=== PATIENT | male | born 1950 | race Caucasian/White ===

== ENCOUNTER → 2020-01-11 08:11 | Outpatient (BNVA) | payer MEDICARE, SELFPAY | PROVIDERS: Family Provider Registered Nurse; PCP Registered Nurse; Visit Provider Nurse Practitioner Family | DX: I10 Essential (primary) hypertension (principal); Z00.00 Encounter for general adult medical examination without abnormal findings; Z12.5 Encounter for screening for malignant neoplasm of prostate | CPT/HCPCS: 80053; 80061; G0103 ==

== ENCOUNTER → 2020-06-19 08:06 | Outpatient (BNVA) | payer MEDICARE, SELFPAY | PROVIDERS: Family Provider Registered Nurse; PCP Registered Nurse; Visit Provider Nurse Practitioner Family | DX: I10 Essential (primary) hypertension (principal) | CPT/HCPCS: 80053 ==

== ENCOUNTER → 2020-07-03 08:30 | Outpatient (BNVA) | payer MEDICARE, SELFPAY | PROVIDERS: Family Provider Registered Nurse; PCP Registered Nurse; Referring Provider Nurse Practitioner Family; Visit Provider Orthopaedic Surgery | DX: M17.11 Unilateral primary osteoarthritis, right knee (principal); M25.561 Pain in right knee | CPT/HCPCS: 73560; 73565 ==

== ENCOUNTER → 2021-03-27 09:50 | Outpatient (BNVA) | payer MEDICARE, SELFPAY | PROVIDERS: Family Provider Registered Nurse; PCP Family Medicine Adult Medicine; Visit Provider Family Medicine Adult Medicine | DX: I10 Essential (primary) hypertension (principal); N40.0 Benign prostatic hyperplasia without lower urinary tract symptoms; Z13.6 Encounter for screening for cardiovascular disorders | CPT/HCPCS: 80053; 80061; 84153; 84443; 85025 ==

== ENCOUNTER → 2022-03-22 14:14 | Outpatient (BNVA) | payer MEDICARE, SELFPAY | PROVIDERS: Family Provider Registered Nurse; PCP Family Medicine Adult Medicine; Visit Provider Family Medicine Adult Medicine | DX: E78.5 Hyperlipidemia, unspecified (principal); I10 Essential (primary) hypertension; N40.0 Benign prostatic hyperplasia without lower urinary tract symptoms; Z12.5 Encounter for screening for malignant neoplasm of prostate | CPT/HCPCS: 80053; 80061; G0103 ==

== ENCOUNTER → 2023-07-28 09:10 | Outpatient (BNVA) | payer MEDICARE, SELFPAY | PROVIDERS: Family Provider Registered Nurse; PCP Family Medicine Adult Medicine; Visit Provider Family Medicine Adult Medicine | DX: I10 Essential (primary) hypertension (principal); E78.5 Hyperlipidemia, unspecified; N40.0 Benign prostatic hyperplasia without lower urinary tract symptoms; R35.1 Nocturia; N40.1 Benign prostatic hyperplasia with lower urinary tract symptoms | CPT/HCPCS: 80053; 80061; 84443; 85025; G0103 ==

== ENCOUNTER → 2023-11-20 14:10 | Outpatient (BNVA) | payer MEDICARE, SELFPAY | PROVIDERS: Family Provider Registered Nurse; PCP Family Medicine Adult Medicine; Referring Provider Nurse Practitioner; Visit Provider Surgery | DX: R13.10 Dysphagia, unspecified (principal); K21.9 Gastro-esophageal reflux disease without esophagitis; Z86.010 Personal history of colon polyps | CPT/HCPCS: 99204 ==

== ENCOUNTER 2024-01-28 11:41 | Day surgery (SDC) | payer MEDICARE, SELFPAY ==
[2024-01-28 12:17] VITALS: BP 191/108; PULSE 77; RESP 18; TEMP 36.3; O2SAT 98; BMI 35.6
[2024-01-28] MEDS: sodium chloride 0.9% 1,000 ML 30 ML IV (12:23)
--- NOTE | 2024-01-28 12:52 | ANES.PREANE2 ---
Pre-Anesthetic Assessment Height/Weight: Height 1.85 m Weight 122.47 kg Temp Pulse Resp BP Pulse Ox O2 Del Method 97.4 F L 77 18 191/108 98 Room Air 01/28/24 12:17 01/28/24 12:17 01/28/24 12:17 01/28/24 12:17 01/28/24 12:17 01/28/24 12:17 Preop Diagnosis: dysphagia, screening Operation Date: 01/28/24 12:45 Proposed Procedures p EGD Dilation W/ Balloon 97794, 31458, G0105, Z86.010, R13.10(Not Applicable) - Jose Mosley DO s Colonoscopy(Not Applicable) - Jose Mosley DO Familial anesthetic complications: none Was Beta Mingo taken within 24 hours: N/A Was Clonidine taken within 24 hours: N/A Last intake: Intake Last Liquid Date 01/27/24 Last Liquid Time 23:00 Last Solid Date 01/26/24 Last Solid Time 17:00 Social No alcohol and No tobacco Exam alert, oriented x 3, clear to auscultation bilaterally and regular rate & rhythm Airway Submandibular: within normal limits Cervical ROM: within normal limits Mallampati: Class III Dentition: partials Pulmonary None reported CV/HEM Hypertension None reported Hepatic None reported GI Gastroesophageal Reflux Disease Metabolic Hyperlipidemia [facility]/skel None reported right wrist injury. Neuropsych None reported Anesthetic Plan ASA status: 2 Anesthesia: MAC Medications/Allergies Home Medications Medication Instructions Recorded Confirmed Last Taken Type sildenafil 50 mg tablet 50 mg PO DAILY PRN sexual activity 04/04/22 01/26/24 Unknown Rx #5 tabs tamsulosin 0.4 mg capsule 0.4 mg PO DAILY #90 caps 06/17/23 01/26/24 01/25/24 Rx B-complex with vitamin C 1 tab PO DAILY B vitamins #100 tabs 08/20/23 01/26/24 01/25/24 Rx clotrimazole-betamethasone 1 1 applic topical BID 2 weeks #45 11/04/23 01/26/24 01/25/24 Rx %-0.05 % topical cream grams pantoprazole 40 mg tablet,delayed 40 mg PO BID 6 weeks #84 tabs 11/20/23 01/26/24 01/25/24 Rx release (Protonix) guanfacine 2 mg tablet 2 mg PO BID blood pressure control 12/15/23 01/26/24 01/27/24 08:00 Rx 90 days #180 tabs hydralazine 25 mg tablet 25 mg PO TID PRN HTN #270 tabs 12/26/23 01/26/24 01/26/24 Rx lisinopril 20 mg tablet 20 mg PO DAILY 01/27/24 01/27/24 01/25/24 History pravastatin 20 mg tablet 20 mg PO DAILY 01/27/24 01/27/24 01/25/24 History triamterene 37.5 1 cap PO DAILY 01/27/24 01/27/24 01/25/24 History mg-hydrochlorothiazide 25 mg capsule verapamil 180 mg tablet,extended 180 mg PO BID 01/27/24 01/27/24 01/25/24 History release Allergies Allergy/AdvReac Type Severity Reaction Status Date / Time No Known Allergies Allergy Verified 11/20/23 14:14 Current Medications Generic Name Dose Route Start Last Admin Trade Name Freq PRN Reason Stop Dose Admin Sodium Chloride 1,000 mls @ 30 mls/hr 01/28/24 12:15 01/28/24 12:23 Sodium Chloride 0.9% IV 01/29/24 12:14 30 mls/hr .Q24H YASMIN Administration PFSH Anesthesia Medical History Fatigue Seborrheic keratoses Actinic keratoses Nocturia Insomnia Chronic nasal congestion Allergic rhinitis Arthritis of right hip Plantar fasciitis of left foot Erectile dysfunction BPH (benign prostatic hyperplasia) Osteoarthritis involving multiple joints on both sides of body Hypertension Surgical History Hx of hernia repair Hx of appendectomy Family History Mother CAD (coronary artery disease) Father CAD (coronary artery disease) Social History Smoking and tobacco/nicotine status: never used tobacco/nicotine Alcohol intake: never Substance/Drug Use: never Caregiver/support person: No Lives independently: Yes Household members: spouse Marital status: Single Highest education level completed: Some College, No Degree service: No Current occupational status: retired Do you think of yourself as: Straight/Heterosexual Current gender identity: Male Special brianne needs: No Agree to transfusion: Yes Data Anesthesia Cardiac Studies: No Data to Display
--- NOTE | 2024-01-28 13:07 | PM.HP ---
Providers/Chief Complaint Primary Care Provider: Noé Li MD Chief Complaint: Z86.010 History of Present Illness Desirae Sullivan ([place]) is a 73 year old male Review of Systems General: Reports: 10 or more systems reviewed and unremarkable except in HPI and below Medications/Allergies Home Medications Medication Instructions Recorded Confirmed Last Taken Type sildenafil 50 mg tablet 50 mg PO DAILY PRN sexual activity 04/04/22 01/26/24 Unknown Rx #5 tabs tamsulosin 0.4 mg capsule 0.4 mg PO DAILY #90 caps 06/17/23 01/26/24 01/25/24 Rx B-complex with vitamin C 1 tab PO DAILY B vitamins #100 tabs 08/20/23 01/26/24 01/25/24 Rx clotrimazole-betamethasone 1 1 applic topical BID 2 weeks #45 11/04/23 01/26/24 01/25/24 Rx %-0.05 % topical cream grams pantoprazole 40 mg tablet,delayed 40 mg PO BID 6 weeks #84 tabs 11/20/23 01/26/24 01/25/24 Rx release (Protonix) guanfacine 2 mg tablet 2 mg PO BID blood pressure control 12/15/23 01/26/24 01/27/24 08:00 Rx 90 days #180 tabs hydralazine 25 mg tablet 25 mg PO TID PRN HTN #270 tabs 12/26/23 01/26/24 01/26/24 Rx lisinopril 20 mg tablet 20 mg PO DAILY 01/27/24 01/27/24 01/25/24 History pravastatin 20 mg tablet 20 mg PO DAILY 01/27/24 01/27/24 01/25/24 History triamterene 37.5 1 cap PO DAILY 01/27/24 01/27/24 01/25/24 History mg-hydrochlorothiazide 25 mg capsule verapamil 180 mg tablet,extended 180 mg PO BID 01/27/24 01/27/24 01/25/24 History release Allergies Allergy/AdvReac Type Severity Reaction Status Date / Time No Known Allergies Allergy Verified 11/20/23 14:14 PFSH Acute PFSH: Medical History Fatigue Seborrheic keratoses Actinic keratoses Nocturia Insomnia Chronic nasal congestion Allergic rhinitis Arthritis of right hip Plantar fasciitis of left foot Erectile dysfunction BPH (benign prostatic hyperplasia) Osteoarthritis involving multiple joints on both sides of body Hypertension Surgical History Hx of hernia repair Hx of appendectomy Family History Mother CAD (coronary artery disease) Father CAD (coronary artery disease) Social History Smoking and tobacco/nicotine status: never used tobacco/nicotine Alcohol intake: never Substance/Drug Use: never Caregiver/support person: No Lives independently: Yes Household members: spouse Marital status: Single Highest education level completed: Some College, No Degree service: No Current occupational status: retired Do you think of yourself as: Straight/Heterosexual Current gender identity: Male Special brianne needs: No Agree to transfusion: Yes Vitals/I&O/Wt Last Vital Signs Temp 97.4 F L 01/28/24 12:17 Pulse 77 01/28/24 12:17 Resp 18 01/28/24 12:17 BP 191/108 01/28/24 12:17 Pulse Ox 98 01/28/24 12:17 O2 Del Method Room Air 01/28/24 12:17 Weight last 48 hrs Weight 270 lb A&P Assessment and plan (1) GERD (gastroesophageal reflux disease): (2) History of colon polyps: (3) Dysphagia: Plan EGD with possible balloon dilation and colonoscopy Attestations Medical Necessity Statement*: Home Coding Level of Care Code Acute Code for g Fwd Diagnoses GERD (gastroesophageal reflux disease) K21.9 History of colon polyps Z86.010 Dysphagia R13.10
[2024-01-28 13:33] VITALS: BP 173/96; PULSE 77; RESP 26; TEMP 36.8; O2SAT 100
[2024-01-28 13:43] VITALS: BP 168/99; PULSE 95; RESP 18; O2SAT 97
[2024-01-28 13:53] VITALS: BP 171/92; PULSE 98; RESP 18; O2SAT 98
[2024-01-28 14:01] VITALS: BP 176/86; PULSE 96; RESP 18; O2SAT 96
--- NOTE | 2024-01-28 14:25 | ANE.PACU2 ---
Inpatient post-anesthesia follow up: Airway intact: Yes Vital signs: Temperature 98.3 F Pulse Rate 96 Respiratory Rate 18 Blood Pressure 176/86 Pulse Oximetry 96 Oxygen Delivery Me thod Room Air Oxygen Flow Rate Fraction of Inspir ed Oxygen Hydration adequate: Yes Pain level: 1 Mental status: Baseline
== END 2024-01-28 14:28 | disposition home or self-care (01) ==
PROVIDERS: Family Provider Registered Nurse; PCP Family Medicine Adult Medicine; Visit Provider Surgery
PROC: 0DJD8ZZ Inspection of Lower Intestinal Tract, Via Natural or Artificial Opening Endoscopic (ICD-10-PCS; CPT 45378; 2024-01-28 12:45)
DX: Z12.11 Encounter for screening for malignant neoplasm of colon (principal); Z86.0100 Personal history of colon polyps, unspecified; R13.10 Dysphagia, unspecified; K64.8 Other hemorrhoids; K57.30 Diverticulosis of large intestine without perforation or abscess without bleeding; K63.5 Polyp of colon; K29.50 Unspecified chronic gastritis without bleeding; K22.2 Esophageal obstruction; I10 Essential (primary) hypertension; K21.9 Gastro-esophageal reflux disease without esophagitis; E78.5 Hyperlipidemia, unspecified; N40.0 Benign prostatic hyperplasia without lower urinary tract symptoms
CPT/HCPCS: 43239; 43249; 45385; 88305; 88342; J0360; J2704; J7030

== ENCOUNTER 2024-02-11 11:01 | Day surgery (SDC) | payer MEDICARE, SELFPAY ==
[2024-02-11 11:22] VITALS: BP 177/81; PULSE 54; RESP 18; TEMP 36.8; O2SAT 99; BMI 27.7
--- NOTE | 2024-02-11 12:10 | ANES.PREANE2 ---
Pre-Anesthetic Assessment Height/Weight: Height 1.85 m Weight 95.254 kg Temp Pulse Resp BP Pulse Ox O2 Del Method 98.3 F 54 L 18 177/81 99 Room Air 02/11/24 11:22 02/11/24 11:22 02/11/24 11:22 02/11/24 11:22 02/11/24 11:22 02/11/24 11:22 Preop Diagnosis: Stricture Operation Date: 02/11/24 12:00 Proposed Procedures p EGD Dilation W/ Balloon 48830, R13.10(Not Applicable) - Jose Mosley DO Familial anesthetic complications: N + V Was Beta Mingo taken within 24 hours: N/A Was Clonidine taken within 24 hours: N/A Last intake: Intake Last Liquid Date 02/10/24 Last Liquid Time 22:30 Last Solid Date 02/10/24 Last Solid Time 20:00 Social No alcohol and No tobacco Exam alert, oriented x 3, clear to auscultation bilaterally and regular rate & rhythm Airway Dentition: false Comments: Comments: Bottom teeth intact History/ROS No significant history except as noted and No significant complaints Pulmonary None reported CV/HEM Hypertension None reported Hepatic None reported GI Gastroesophageal Reflux Disease Metabolic None reported Musc/skel None reported Neuropsych None reported Anesthetic Plan ASA status: 2 Anesthesia: MAC Risk of > 500 ml blood loss (7ml/kg in children): No Medications/Allergies Home Medications Medication Instructions Recorded Confirmed Last Taken Type sildenafil 50 mg tablet 50 mg PO DAILY PRN sexual activity 04/04/22 02/09/24 Unknown Rx #5 tabs tamsulosin 0.4 mg capsule 0.4 mg PO DAILY #90 caps 06/17/23 02/09/24 02/10/24 Rx B-complex with vitamin C 1 tab PO DAILY B vitamins #100 tabs 08/20/23 02/09/24 02/10/24 Rx pantoprazole 40 mg tablet,delayed 40 mg PO BID 6 weeks #84 tabs 11/20/23 02/09/24 02/10/24 Rx release (Protonix) guanfacine 2 mg tablet 2 mg PO BID blood pressure control 12/15/23 02/09/24 02/10/24 Rx 90 days #180 tabs hydralazine 25 mg tablet 25 mg PO TID PRN HTN #270 tabs 12/26/23 02/09/24 02/10/24 Rx lisinopril 20 mg tablet 20 mg PO DAILY 01/27/24 02/09/24 02/10/24 History pravastatin 20 mg tablet 20 mg PO DAILY 01/27/24 02/09/24 02/10/24 History triamterene 37.5 1 cap PO DAILY 01/27/24 02/09/24 02/10/24 History mg-hydrochlorothiazide 25 mg capsule hydrocortisone 2.5 % topical cream 1 applic VT QID 3 weeks #30 grams 01/28/24 02/09/24 02/11/24 Rx with perineal applicator (Procto-Med ) clotrimazole-betamethasone 1 1 applic topical BID PRN Rash 02/09/24 02/09/24 Unknown History %-0.05 % topical cream verapamil 180 mg tablet,extended 180 mg PO BID #180 tabs 02/11/24 02/11/24 02/10/24 Rx release Allergies Allergy/AdvReac Type Severity Reaction Status Date / Time No Known Allergies Allergy Verified 02/09/24 08:12 [facility] Anesthesia Medical History Fatigue Seborrheic keratoses Actinic keratoses Nocturia Insomnia Chronic nasal congestion Allergic rhinitis Arthritis of right hip Plantar fasciitis of left foot Erectile dysfunction BPH (benign prostatic hyperplasia) Osteoarthritis involving multiple joints on both sides of body Hypertension Surgical History Hx of hernia repair Hx of appendectomy Family History Mother CAD (coronary artery disease) Father CAD (coronary artery disease) Social History Smoking and tobacco/nicotine status: never used tobacco/nicotine Alcohol intake: never Substance/Drug Use: never Caregiver/support person: No Lives independently: Yes Household members: spouse Marital status: Single Highest education level completed: Some College, No Degree service: No Current occupational status: retired Do you think of yourself as: Straight/Heterosexual Current gender identity: Male Special brianne needs: No Agree to transfusion: Yes Data Anesthesia Cardiac Studies: No Data to Display
--- NOTE | 2024-02-11 12:34 | PM.HP ---
Providers/Chief Complaint Primary Care Provider: Noé Li MD Chief Complaint: R13.10 History of Present Illness Desirae Sullivan ([place]) is a 73 year old male Review of Systems General: Reports: 10 or more systems reviewed and unremarkable except in HPI and below Medications/Allergies Home Medications Medication Instructions Recorded Confirmed Last Taken Type sildenafil 50 mg tablet 50 mg PO DAILY PRN sexual activity 04/04/22 02/09/24 Unknown Rx #5 tabs tamsulosin 0.4 mg capsule 0.4 mg PO DAILY #90 caps 06/17/23 02/09/24 02/10/24 Rx B-complex with vitamin C 1 tab PO DAILY B vitamins #100 tabs 08/20/23 02/09/24 02/10/24 Rx pantoprazole 40 mg tablet,delayed 40 mg PO BID 6 weeks #84 tabs 11/20/23 02/09/24 02/10/24 Rx release (Protonix) guanfacine 2 mg tablet 2 mg PO BID blood pressure control 12/15/23 02/09/24 02/10/24 Rx 90 days #180 tabs hydralazine 25 mg tablet 25 mg PO TID PRN HTN #270 tabs 12/26/23 02/09/24 02/10/24 Rx lisinopril 20 mg tablet 20 mg PO DAILY 01/27/24 02/09/24 02/10/24 History pravastatin 20 mg tablet 20 mg PO DAILY 01/27/24 02/09/24 02/10/24 History triamterene 37.5 1 cap PO DAILY 01/27/24 02/09/24 02/10/24 History mg-hydrochlorothiazide 25 mg capsule hydrocortisone 2.5 % topical cream 1 applic CO QID 3 weeks #30 grams 01/28/24 02/09/24 02/11/24 Rx with perineal applicator (Procto-Med ) clotrimazole-betamethasone 1 1 applic topical BID PRN Rash 02/09/24 02/09/24 Unknown History %-0.05 % topical cream verapamil 180 mg tablet,extended 180 mg PO BID #180 tabs 02/11/24 02/11/24 02/10/24 Rx release Allergies Allergy/AdvReac Type Severity Reaction Status Date / Time No Known Allergies Allergy Verified 02/09/24 08:12 PFSH Acute PFSH: Medical History Fatigue Seborrheic keratoses Actinic keratoses Nocturia Insomnia Chronic nasal congestion Allergic rhinitis Arthritis of right hip Plantar fasciitis of left foot Erectile dysfunction BPH (benign prostatic hyperplasia) Osteoarthritis involving multiple joints on both sides of body Hypertension Surgical History Hx of hernia repair Hx of appendectomy Family History Mother CAD (coronary artery disease) Father CAD (coronary artery disease) Social History Smoking and tobacco/nicotine status: never used tobacco/nicotine Alcohol intake: never Substance/Drug Use: never Caregiver/support person: No Lives independently: Yes Household members: spouse Marital status: Single Highest education level completed: Some College, No Degree service: No Current occupational status: retired Do you think of yourself as: Straight/Heterosexual Current gender identity: Male Special brianne needs: No Agree to transfusion: Yes Vitals/I&O/Wt Last Vital Signs Temp 98.3 F 02/11/24 11:22 Pulse 54 L 02/11/24 11:22 Resp 18 02/11/24 11:22 BP 177/81 02/11/24 11:22 Pulse Ox 99 02/11/24 11:22 O2 Del Method Room Air 02/11/24 11:22 Weight last 48 hrs Weight 210 lb A&P Assessment and plan (1) Dysphagia: (2) Esophageal stricture: Plan EGD with balloon dilation The risks and benefits of the procedure, including bleeding, infection, intestinal perforation requiring surgery, missed lesion were explained to the patient. The patient is understanding of the risks and wishes to proceed. Attestations Medical Necessity Statement*: Home Coding Level of Care Code Acute Code for Chg Fwd Diagnoses Dysphagia R13.10 Esophageal stricture K22.2
[2024-02-11 13:04] VITALS: BP 163/78; PULSE 50; RESP 18; TEMP 36.8; O2SAT 92
[2024-02-11 13:16] VITALS: BP 147/74; PULSE 48; RESP 18; O2SAT 96
--- NOTE | 2024-02-11 13:42 | ANE.PACU2 ---
Inpatient post-anesthesia follow up: Airway intact: Yes Vital signs: Temperature 98.3 F Pulse Rate 48 Respiratory Rate 18 Blood Pressure 147/74 Pulse Oximetry 96 Oxygen Delivery Me thod Room Air Oxygen Flow Rate Fraction of Inspir ed Oxygen Hydration adequate: Yes Nausea and vomiting: No Pain level: 1 Mental status: Baseline
== END 2024-02-11 13:42 | disposition home or self-care (01) ==
PROVIDERS: Family Provider Registered Nurse; PCP Family Medicine Adult Medicine; Visit Provider Surgery
DX: R13.10 Dysphagia, unspecified (principal); N40.0 Benign prostatic hyperplasia without lower urinary tract symptoms; I10 Essential (primary) hypertension; K22.2 Esophageal obstruction; K21.9 Gastro-esophageal reflux disease without esophagitis
CPT/HCPCS: 43235; 43249; J2704

== ENCOUNTER → 2024-02-16 13:20 | Outpatient (BNVA) | payer MEDICARE, SELFPAY | PROVIDERS: Family Provider Registered Nurse; PCP Family Medicine Adult Medicine; Visit Provider Surgery | DX: Z09 Encounter for follow-up examination after completed treatment for conditions other than malignant neoplasm (principal); K22.2 Esophageal obstruction; R13.10 Dysphagia, unspecified; K21.9 Gastro-esophageal reflux disease without esophagitis; K63.5 Polyp of colon | CPT/HCPCS: 99214 ==

== ENCOUNTER → 2024-06-16 14:54 | Outpatient (BNVA) | payer MEDICARE, SELFPAY | PROVIDERS: Family Provider Registered Nurse; PCP Family Medicine; Visit Provider Family Medicine | DX: N40.1 Benign prostatic hyperplasia with lower urinary tract symptoms (principal); R39.12 Poor urinary stream; E78.2 Mixed hyperlipidemia; I10 Essential (primary) hypertension; Z12.5 Encounter for screening for malignant neoplasm of prostate | CPT/HCPCS: 80053; 80061; 84153; 84439; 84443; 85025 ==

== ENCOUNTER → 2024-08-18 09:04 | Outpatient (BNVA) | payer MEDICARE, SELFPAY | PROVIDERS: Family Provider Registered Nurse; PCP Family Medicine; Visit Provider Family Medicine | DX: R97.20 Elevated prostate specific antigen [PSA] (principal); Z12.5 Encounter for screening for malignant neoplasm of prostate; E03.8 Other specified hypothyroidism | CPT/HCPCS: 84153; 84439; 84443 ==